=== PATIENT | male | born 1960 | race Caucasian/White ===

== ENCOUNTER 2016-08-22 16:29 | Emergency (ER) | payer BC ==
[2016-08-22 17:08] VITALS: BP 140/85
--- NOTE | 2016-08-22 17:26 | UC ---
Shoulder Pain HPI - HPI Summary HPI Summary: left shoulder pain x 10 days hx of left shoulder injury / pain x 10 years ago increase pain about 10 days ago as he was stretching the left shoulder + history of ALS - History of Current Complaint Chief Complaint: UCUpperExtremity Stated Complaint: SHOULDER INJURY Time Seen by Provider: 08/22/16 17:00 Hx Obtained From: Patient Onset/Duration: Gradual Onset, Lasting Days - 10, Still Present Timing: Constant Severity Initially: Severe Severity Currently: Severe Location Of Pain: Is Discrete @ - left shoulder Character: Throbbing Aggravating Factor(s): Movement, Lifting, Flexion, Extension, Internal Rotation , External Rotation, Abduction Alleviating Factor(s): Nothing Associated Signs And Symptoms: Positive: Weakness. Negative: Swelling, Redness , Bruising, Fever, Numbness/Tingling - Allergies/Home Medications Allergies/Adverse Reactions: Allergies Allergy/AdvReac Type Severity Reaction Status Date / Time Codeine AdvReac Nausea Verified 08/22/16 17:08 Morphine and Related AdvReac Nausea Verified 08/22/16 17:08 Home Medications: Home Medications Cyclobenzaprine TAB* [Flexeril 10 MG TAB*] 10 mg PO BID PRN 08/22/16 [History Confirmed 08/22/16] clonazePAM TAB(*) [KlonoPIN TAB(*)] 1 mg PO TID PRN 08/22/16 [History Confirmed 08/22/16] PMH/Surg Hx/FS Hx/Imm Hx - Additional Past Medical History Additional PMH: + hx of ALS - Surgical History Surgical History: Yes Surgery Procedure, Year, and Place: BACK SURGERY, FUSIONS IN THE S. DIFIBRALTOR, POCKET REVISION- MAR 2014 - Family History Known Family History: Positive: Hypertension - Social History Alcohol Use: None Substance Use Type: None Smoking Status (MU): Never Smoked Tobacco Review of Systems Constitutional: Negative Skin: Negative Eyes: Negative ENT: Negative Respiratory: Negative Musculoskeletal: Arthralgia, Decreased ROM, Myalgia All Other Systems Reviewed And Are Negative: Yes Physical Exam Triage Information Reviewed: Yes Appearance: Well-Appearing, No Pain Distress, Well-Nourished Vital Signs: Initial Vital Signs Temp 99.0 F 08/22/16 16:57 Pulse 86 08/22/16 16:57 Resp 16 08/22/16 16:57 BP 140/85 08/22/16 16:57 Pulse Ox 100 08/22/16 16:57 Vital Signs Reviewed: Yes Eyes: Positive: Conjunctiva Clear ENT: Positive: Normal ENT inspection, Hearing grossly normal, Pharynx normal Neck: Positive: Supple, Nontender, No Lymphadenopathy Respiratory: Positive: Chest non-tender, Lungs clear, Normal breath sounds Cardiovascular: Positive: RRR, No Murmur, Pulses Normal Musculoskeletal: Positive: Other: - left shoulder: no erythema, + diffuse tenderness, pain with flexion, extension, internal/external rotarion Shoulder Course/Dx - Differential Dx/Diagnosis Provider Diagnoses: left shoulder pain Discharge - Discharge Plan Condition: Stable Disposition: HOME Prescriptions: Hydrocodone-Acetaminophen [Hydrocodone/Acetaminophen 5-325 mg] 1 tab PO Q6H PRN #30 tab MDD 4 tabs per day PRN Reason: Pain Patient Education Materials: Shoulder Pain (ED) Referrals: Lara Mandel MD [Primary Care Provider] - 7 Days
== END 2016-08-22 17:33 | disposition home or self-care (01) ==
LOC: UCCORT 16:29
DX: M25.512 Pain in left shoulder (principal); Z88.5 Allergy status to narcotic agent
CPT/HCPCS: 93005; 99211; G0463

== ENCOUNTER 2016-10-25 10:41 | Emergency (ER) | payer BC ==
--- NOTE | 2016-10-25 11:15 | UC ---
Bite Injury/Animal HPI - HPI Summary HPI Summary: 56 year old male presents with complains of abscess x 2 on his right groin - History of Current Complaint Stated Complaint: INSECT BITES Time Seen by Provider: 10/25/16 11:15 Hx Obtained From: Patient Severity Currently: Moderate Severity Initially: Moderate Pain Scale Used: 0-10 Numeric - 6 - Allergies/Home Medications Allergies/Adverse Reactions: Allergies Allergy/AdvReac Type Severity Reaction Status Date / Time Codeine AdvReac Nausea Verified 10/25/16 11:22 Morphine and Related AdvReac Nausea Verified 10/25/16 11:22 Home Medications: Home Medications Bacitracin OPHTH.OINT* 1 applic .SEE ORDER BID PRN 10/25/16 [History Confirmed 10/25/16] Tramadol HCl [Ultram] 50 mg PO BID PRN 10/25/16 [History Confirmed 10/25/16] PMH/Surg Hx/FS Hx/Imm Hx Previously Healthy: Yes - Surgical History Surgical History: Yes Surgery Procedure, Year, and Place: BACK SURGERY, FUSIONS IN THE S. DIFIBRALTOR, POCKET REVISION- MAR 2014 - Family History Known Family History: Positive: Hypertension - Social History Alcohol Use: None Substance Use Type: None Smoking Status (MU): Never Smoked Tobacco Review of Systems Constitutional: Negative Skin: Other - abscess right groin Eyes: Negative ENT: Negative Respiratory: Negative Cardiovascular: Negative Gastrointestinal: Negative Genitourinary: Negative Motor: Negative Neurovascular: Negative Musculoskeletal: Negative Neurological: Negative Psychological: Negative All Other Systems Reviewed And Are Negative: Yes Physical Exam Triage Information Reviewed: Yes Eye Exam: Normal ENT Exam: Normal Dental Exam: Normal Neck exam: Normal Neck: Positive: 1 Respiratory Exam: Normal Cardiovascular Exam: Normal Abdominal Exam: Normal Musculoskeletal Exam: Normal Neurological Exam: Normal Psychological Exam: Normal Skin: Positive: Other - right groin abscess Bite Injury Course/Dx - Differential Dx/Diagnosis Provider Diagnoses: right groin abscess Discharge - Discharge Plan Condition: Stable Disposition: HOME Prescriptions: Mupirocin 2% OINT* [Bactroban 2 % Oint*] 1 applic TOPICAL BID #1 tube Sulfamethox/Trimethoprim DS* [Bactrim DS 800/160 TAB*] 1 tab PO BID #14 tab Patient Education Materials: Folliculitis (ED), Abscess (ED) Referrals: Lara Mandel MD [Medical Doctor] -
[2016-10-25 11:22] VITALS: BP 131/78
== END 2016-10-25 11:46 | disposition home or self-care (01) ==
LOC: UCCORT 10:41
DX: L02.214 Cutaneous abscess of groin (principal); Z88.5 Allergy status to narcotic agent
CPT/HCPCS: 99212; G0463

== ENCOUNTER 2017-08-09 12:54 | Emergency (ER) | payer BC ==
[2017-08-09 13:58] VITALS: BP 146/82
[2017-08-09] MEDS ORDERED: HYDROcodone/ACETAMIN 5-325 MG* 1 TAB PO ONE (14:34)
--- NOTE | 2017-08-09 15:11 | UC ---
Lower Extremity/Ankle HPI - HPI Summary HPI Summary: Patient has ALS. He has had increase amounts of pain and muscle ridgity. feels like he cannot relax to get any sleep---recently titrated of ultram---and started on Baclafen 10 mg po bid . States he has an appointment with Hospice tomorrow and his primary care doctor in 2-3 weeks. Patient states he has though of suicide but is not suicidal now and does not have a plan has a supportive and family - History of Current Complaint Chief Complaint: UCGeneralIllness Stated Complaint: PAIN,INSOMNIA (ALS) Time Seen by Provider: 08/09/17 14:09 Hx Obtained From: Patient Onset/Duration: Gradual Onset, Lasting Days Pain Intensity: 9 Pain Scale Used: 0-10 Numeric Aggravating Factor(s): Other - the discomfort is continous Alleviating Factor(s): Nothing Able to Bear Weight: Yes - with heavy 1 assist and gait belt - Allergies/Home Medications Allergies/Adverse Reactions: Allergies Allergy/AdvReac Type Severity Reaction Status Date / Time codeine AdvReac Unknown Nausea Verified 08/09/17 13:33 morphine AdvReac Unknown Nausea Verified 08/09/17 13:33 Home Medications: Home Medications Baclofen TAB* [Lioresal TAB*] 10 mg PO BID 08/09/17 [History Confirmed 08/09/17] Cbd Oil PRN 08/09/17 [History] Docusate Sodium [Dulcolax Stool Softener] 100 mg PO DAILY 08/09/17 [History Confirmed 08/09/17] Famotidine TAB* [Pepcid 20 MG TAB*] 20 mg PO DAILY 08/09/17 [History Confirmed 08/09/17] Thc Oil PRN 08/09/17 [History] diPHENhydraMINE PO* [Benadryl PO 25 MG TAB*] 50 mg PO BEDTIME PRN 08/09/17 [ History Confirmed 08/09/17] PMH/Surg Hx/FS Hx/Imm Hx Previously Healthy: No GI/ History: Gastroesophageal Reflux Neurological History: Other Other Neurological History: ALS Psychological History: Anxiety - Surgical History Surgical History: Yes Surgery Procedure, Year, and Place: BACK SURGERY, FUSIONS IN THE S. DIFIBRALTOR, POCKET REVISION- MAR 2014 - Family History Known Family History: Positive: Hypertension - Social History Occupation: Disabled Lives: With Family Alcohol Use: None Substance Use Type: Marijuana Substance Use Comment - Amount & Last Used: PRESCRIBED Smoking Status (MU): Never Smoked Tobacco Review of Systems Constitutional: Negative Skin: Negative Eyes: Negative ENT: Negative Respiratory: Negative Cardiovascular: Negative Gastrointestinal: Negative Genitourinary: Negative Motor: Negative Neurovascular: Negative Musculoskeletal: Negative, Arthralgia, Myalgia - arms and both lower legs Neurological: Negative Psychological: Negative Is Patient Immunocompromised?: No All Other Systems Reviewed And Are Negative: Yes Physical Exam Triage Information Reviewed: No Appearance: Well-Nourished, Ill-Appearing, Pain Distress Vital Signs: Initial Vital Signs Temp 99.9 F 08/09/17 13:43 Pulse 107 08/09/17 13:43 Resp 20 08/09/17 13:43 BP 146/82 08/09/17 13:43 Pulse Ox 100 08/09/17 13:43 Vital Signs Reviewed: Yes Eye Exam: Normal Eyes: Positive: Conjunctiva Clear ENT Exam: Normal ENT: Positive: Normal ENT inspection, Hearing grossly normal. Negative: Muffled voice, Hoarse voice, Dental tenderness Neck exam: Normal Neck: Positive: Supple, Nontender Respiratory Exam: Normal Respiratory: Positive: Chest non-tender, No respiratory distress, No accessory muscle use Cardiovascular Exam: Normal Cardiovascular: Positive: Pulses Normal, Brisk Capillary Refill, Tachycardia Musculoskeletal Exam: Other Musculoskeletal: Positive: Strength Intact, ROM Intact, Edema @ - chronic dependant edema Neurological Exam: Normal Neurological: Positive: Alert, Muscle Tone Normal Psychological Exam: Normal Psychological: Positive: Normal Response To Family, Age Appropriate Behavior, Consolable Skin Exam: Normal Lower Extremity Course/Dx - Course Course Of Treatment: extensive discussion with poatient and as to what his wishes are. He wishes for pain medication and will follow with ED should symptoms worsen and call pcp for a sooner appointment - Differential Dx/Diagnosis Provider Diagnoses: acute exacerbation of chronic musclar skelatal pain Discharge - Sign-Out/Discharge Documenting (check all that apply): Discharge/Admit/Transfer - Discharge Plan Condition: Stable Disposition: HOME Prescriptions: Hydrocodone/Acetaminophen [Hydrocodone/Acetaminophen 5-325 mg] 1 tab PO Q4HR # 20 tab MDD 6 Patient Education Materials: Chronic Pain (ED) Referrals: Heidi Kaur MD [Primary Care Provider] - As Soon As Possible - Billing Disposition and Condition Condition: STABLE Disposition: HOME
== END 2017-08-09 14:56 | disposition home or self-care (01) ==
LOC: UCCORT 12:54
DX: G89.29 Other chronic pain (principal); M79.1 Myalgia; G12.21 Amyotrophic lateral sclerosis; Z88.5 Allergy status to narcotic agent; K21.9 Gastro-esophageal reflux disease without esophagitis
CPT/HCPCS: 99212; G0463